=== PATIENT | female | born 1990 | race Caucasian/White ===

== ENCOUNTER 2018-06-03 05:15 | Day surgery (SDC) | payer BC ==
[2018-06-02 15:16] LABS: HEMATOCRIT 35.8 % (36.0-48.0); HEMOGLOBIN 12.2 g/dL (12-16); MCH 30.1 pg (26.0-34.0); MCHC 34.1 g/dL (31.0-37.0); MCV 88.4 fL (80.0-100.0); MEAN PLATELET VOLUME 11.1 fL (7.4-10.4); RBC 4.05 10x6/uL (4.00-5.40); RDW 12.5 % (11.5-14.5); WBC 7.7 10x3/uL (4.8-10.8)
[~2018-06-03] VITALS: Ht 165.1 cm; Wt 64.0 kg
--- NOTE | ~2018-06-03 | OP ---
PATIENT NAME: WEI MILTON MEDICAL RECORD: [id number] :92 LOCATION:D.OPS ADMISSION DATE: SURGEON: RAMAKRISHNA BOWLING MD DATE OF OPERATION: 06/03/2018 SURGEON: Ramakrishna Bowling MD HELP DESK MANAGER: Edwin Lee MD ANESTHESIA: General anesthesia by Paola Bryant CRNA. DIAGNOSIS: Narberth's gland cyst. PROCEDURE: Cystoscopy, excision of Narberth's gland (periurethral gland) cyst, repair of the urethra. FINDINGS: On cystoscopy, no openings from the periurethral cyst was seen in the urethra. Normal bladder with single ureteral orifices bilaterally. SPECIMENS: Periurethral gland. Swabs for culture from the periurethral gland contents. CLINICAL HISTORY: This is a 27-year-old female who recently had an annual pelvic examination by Dr. Lee. Dr. Lee noticed this periurethral gland cyst just under the urethral meatus. The patient has had dyspareunia for the past 3 months, but no recurrent urinary tract infections. She comes today to have this mass excised. It is cystic in nature. It is also mobile. On examination, it is tender to the patient. She is not allergic to any medications. She was given Ancef IV economics lecturer to the OR. DESCRIPTION OF PROCEDURE: The patient was given induction of general anesthesia. She was placed into dorsal lithotomy position and prepped and draped. A weighted speculum was placed to hold the posterior vaginal wall down. The labia majora retracted laterally using stay sutures of #1 nylon. I attempted to perform cystoscopy using a 17-[place] cystoscope. Placing the cystoscope was actually rather difficult due to the distortion of the urethra from the Narberth's gland cyst. Finally, we managed to get into the urethra. The patient has single ureteral orifices bilaterally. No bladder tumors were seen. Looking carefully on the floor of the urethra, I did not find any opening from the cyst into the urethra. Also, when the cyst was palpated, no pus or purulent discharge could be seen coming out of the urethra. At this point, the scope was removed. A 16-[place] Cole catheter was put into the bladder and put to bag drainage. A U-shaped incision was marked out over the cysts, the U is upside down, and the convexity of U is over the cyst surface. The anterior vaginal wall around the cyst was infiltrated with Pitressin solution. Twenty units of Pitressin was mixed in 100 cc of injectable saline and this was injected into the anterior vaginal wall for hydrodissection. The upside down U incision was then made using a #15 blade. The vaginal mucosa was dissected off the cystic structure with initially tenotomy scissors and then Metzenbaum scissors. As we continued the dissection, we went around the lateral sides of the cysts on towards the urethral surface. Here we discovered that the cyst is quite densely adherent to the distal urethra. In dissecting out the cyst, the urethra was opened up for a distance of about 3 to 4 mm. The cyst was entirely removed. During the cyst dissection; however, the cyst was popped and some of the cyst purulent fluid came out. This fluid was swabbed for culture. Finally, the cyst OPERATIVE REPORT [id number] WEI MILTON was completely excised and sent to pathology in formalin. The wound was irrigated out using normal saline. The urethra was repaired using a running 4-0 Monocryl. The vaginal mucosa was then reapproximated using a running 5-0 Monocryl. Because of the urethrotomy and urethral repair, the patient will be going home with the indwelling Cole catheter for a week to allow the urethra to heal. Vaginal packing with Kerlix infiltrated with estrogen cream was placed into the vagina. This packing will be removed prior to the patient going home. I will see the patient in 1 weeks' time to remove the Cole catheter. TRANSINT:[id number] Voice Confirmation ID: [id number] DOCUMENT ID: [id number] RAMAKRISHNA BOWLING MD at 1024 CC: [id number] DICTATION DATE: 06/03/18 0937 MARKET MASTER: 06/03/18 1009 [facility] [address] [place] [address]
[~2018-06-03 05:15] MED LIST: MULTIPLE VITAMI1 TA1 PO; PROBIOTIC BLEN1 EACH PO; TRINESSA1 TAB PO
[2018-06-03 05:59] VITALS: BP 137/83; Ht 165.1 cm; Wt 64.0 kg
[2018-06-03 06:26] LABS: HCG URINE NEGATIVE (NEGATIVE)
== END 2018-06-03 11:30 | disposition home or self-care (01) ==
LOC: D.OPS 05:15 → D.PAN 07:30 → D.OPS 11:30
PROVIDERS: Anesthesiology; Urology
DX: N36.8 Other specified disorders of urethra (principal); Z01.812 Encounter for preprocedural laboratory examination